=== PATIENT | male | born 1985 | race Caucasian/White ===

== ENCOUNTER 2017-01-29 20:08 | Emergency (ER) | payer SELFPAY ==
[2017-01-29 20:35] LABS: APPEARANCE CLEAR (CLEAR); BILIRUBIN NEGATIVE (NEGATIVE); COLOR YELLOW (YELLOW); GLUCOSE NEGATIVE (NEGATIVE); KETONE NEGATIVE (NEGATIVE); NITRITE NEGATIVE (NEGATIVE); PROTEIN NEGATIVE (NEGATIVE); UROBILINOGEN NORMAL (NORMAL)
[2017-01-29 20:44] LABS: BASOPHILS 0.1 % (0-2); EOSINOPHILS 1.3 % (0-7); HEMATOCRIT 42.8 % (42.0-54.0); HEMOGLOBIN 13.6 g/dL (13.5-17.5); IMMATURE GRANULOCYTES 0.2 % (0-5); LYMPHOCYTES 11.1 % (15-50); MCH 26.7 pg (26.0-34.0); MCHC 31.8 g/dL (31.0-37.0); MCV 83.9 fL (80.0-100.0); MEAN PLATELET VOLUME 10.3 fL (7.4-10.4); MONOCYTES 4.9 % (2-11); NEUTROPHILS 82.4 % (40-80); PLATELET COUNT 338 10x3/uL (130-400)
[2017-01-29 21:16] LABS: ALBUMIN 4.6 g/dL (3.4-5.0); ALKALINE PHOSPHATASE 77 U/L (46-116); ALT (SGPT) 65 U/L (10-68); AMYLASE - SERUM 96 U/L (25-115); BILIRUBIN - TOTAL 0.36 mg/dL (0.2-1.3); CALC OSMOLALITY 287 mosm/kg (275-300); CALCIUM 9.9 mg/dL (8.5-10.1); CARBON DIOXIDE 30.2 mmol/L (21.0-32.0); CHLORIDE - SERUM 105 mmol/L (98-107); CREATININE - SERUM 0.9 mg/dL (0.6-1.3); GLUCOSE 87 mg/dL (74-106); LIPASE 89 U/L (73-393); POTASSIUM - SERUM 4.3 mmol/L (3.5-5.1); PROTEIN - SERUM 8.7 g/dL (6.4-8.2); SODIUM 145 mmol/L (136-145); UREA NITROGEN 13 mg/dL (7-18); eGFR NON AFRICAN AMERICAN > 90 mL/min (90-120)
== END 2017-01-29 22:15 | disposition home or self-care (01) ==
LOC: D.ER 20:08
PROVIDERS: Family Medicine
DX: R11.10 Vomiting, unspecified (principal); F17.200 Nicotine dependence, unspecified, uncomplicated

== ENCOUNTER 2019-06-15 16:49 | Emergency (ER) | payer SELFPAY ==
[~2019-06-15] VITALS: Ht 175.3 cm; Wt 97.7 kg
[2019-06-15 16:56] VITALS: BP 127/75; Ht 175.3 cm; Wt 97.7 kg
[2019-06-15] MEDS ORDERED: ZPAK PO (17:36)
[2019-06-15] MEDS ORDERED: MUCINEX DM ER1 EAC1 PO (17:36)
== END 2019-06-15 17:43 | disposition home or self-care (01) ==
LOC: D.ER 16:49
DX: J40 Bronchitis, not specified as acute or chronic (principal)

== ENCOUNTER 2019-07-26 15:07 | Emergency (ER) | payer SELFPAY ==
[~2019-07-26] VITALS: Ht 175.3 cm; Wt 93.2 kg
[~2019-07-26 15:07] MED LIST: MUCINEX DM ER1 EAC1 PO; ZPAK PO
[2019-07-26 15:20] VITALS: BP 135/88; Ht 175.3 cm; Wt 93.2 kg
[2019-07-26] MEDS ORDERED: FLUTICASONE PRO16 GM NASAL (16:00)
[2019-07-26] MEDS ORDERED: AUGMENTIN 875-11 TAB PO (16:00)
== END 2019-07-26 16:06 | disposition home or self-care (01) ==
LOC: D.ER 15:07
DX: H66.92 Otitis media, unspecified, left ear (principal); J30.9 Allergic rhinitis, unspecified